=== PATIENT | female | born 2000 | race African-American/Black ===

== ENCOUNTER 2020-11-03 15:55 | Observation (INO) | payer MEDICAID ==
[~2020-11-03] VITALS: Ht 154.9 cm; Wt 89.8 kg
[~2020-11-03 15:55] MED LIST: PNV1TABL50 PO
[2020-11-03] MEDS ORDERED: SODIUM CHLORIDE 0.9% 1,000 ML IV SCH (17:15)
[2020-11-03 17:37] LABS: CLARITY URINE CLEAR (CLEAR); COLOR URINE YELLOW (YELLOW); KETONES URINE 2+ (NEGATIVE); LEUKOCYTE ESTERASE URINE 3+ (NEGATIVE); NITRITE URINE NEGATIVE (NEGATIVE); OCCULT BLOOD URINE NEGATIVE (NEGATIVE); PROTEIN URINE NEGATIVE (NEGATIVE); SPECIFIC GRAVITY URINE 1.014 (1.005-1.030)
[2020-11-03] MEDS ORDERED: BETAMETHASONE ACET/BETAMET 30 MG/5 ML VIAL IM NR (18:30)
[2020-11-03] MEDS ORDERED: CEFAZOLIN 2,000 MG in DEXT 5% WATER 100 ML IV NR (19:00)
== END 2020-11-03 20:50 | disposition home or self-care (01) ==
LOC: 8 EST LDRP 15:55 → EDBD 15:55
PROVIDERS: ADMIT Specialist; ATTEND Specialist
DX: O34.63 Maternal care for abnormality of vagina, third trimester (principal); Z3A.30 30 weeks gestation of pregnancy; Z79.899 Other long term (current) drug therapy
CPT/HCPCS: 59025; 81003; 82731; 87086; 96361; 96365; 96372; G0378; J0690; J0702; J7060; 96360; 99281

== ENCOUNTER 2023-08-10 13:07 | Emergency (ER) | payer MEDICAID ==
[~2023-08-10] VITALS: Ht 160 cm; Wt 91.0 kg
[2023-08-10 13:08] VITALS: BP 118/84; PULSE 75; RESP 18; TEMP 99.7; O2SAT 99
[2023-08-10] MEDS ORDERED: LEVETIRACETAM 500MG PREMIX 100 ML IV ONE (14:00)
[2023-08-10] MEDS ORDERED: SODIUM CHLORIDE 0.9% 1,000 ML IV ONE (14:00)
[2023-08-10 15:14] LABS: BASOPHILS % 0.7 % (0.0-2.0); EOSINOPHILS % 5.3 % (0.0-5.0); HEMATOCRIT. 31.8 % (36.0-48.0); HEMOGLOBIN. 11.2 g/dL (12.0-16.0); LYMPHOCYTES % 31.9 % (20.0-50.0); MEAN CORPUSCULAR HGB CONC 35.2 g/dL (31.0-37.0); MEAN CORPUSCULAR VOLUME 85.3 fL (81.0-99.0); MONOCYTES % 8.6 % (2.0-8.0); NEUTROPHILS % 53.5 % (40.0-76.0); PLATELET 181 x1000/uL (130-400); RED BLOOD CELL COUNT 3.73 mill/uL (4.2-5.4); RED CELL DISTRIBUTION WIDTH 17.6 % (11.6-14.6); WHITE BLOOD COUNT 2.8 x1000/uL (4.5-11.0)
[2023-08-10 15:38] LABS: HCG SCREEN NEGATIVE
[2023-08-10 15:41] LABS: ALANINE AMINOTRANSFERASE 10 IU/L (10-49); ALBUMIN 4.2 g/dL (3.2-4.8); ASPARTATE AMINOTRANSFERASE 22 IU/L (<34); BILIRUBIN TOTAL 0.5 mg/dL (0.1-1.0); CALCIUM 9.2 mg/dL (8.7-10.4); CARBON DIOXIDE 25 mEq/L (21-32); CHLORIDE 109 mEq/L (98-107); CREATININE 0.6 mg/dL (0.6-1.0); GLUCOSE 78 mg/dL (70-105); POTASSIUM 3.7 mEq/L (3.5-5.1); PROTEIN TOTAL 7.6 g/dL (6.0-8.3); SODIUM 141 mEq/L (136-145); UREA NITROGEN BLOOD 6 mg/dL (9-23)
[2023-08-10 15:45] LABS: ETHANOL BLOOD < 10 mg/dL (<10)
== END 2023-08-10 16:07 | disposition left against medical advice (07) ==
LOC: ER 13:07
DX: R56.9 Unspecified convulsions (principal); J45.909 Unspecified asthma, uncomplicated; Z98.890 Other specified postprocedural states
CPT/HCPCS: 80053; 80320; 82962; 84703; 83605; 85025; 36415; 93005; 96361; 96365; 99284; J1953; J7030; Z7610 ×2; G0480

== ENCOUNTER 2024-03-07 20:30 | Emergency (ER) | payer MEDICAID ==
[~2024-03-07] VITALS: Ht 154.9 cm; Wt 87.0 kg
[2024-03-07 20:51] VITALS: TEMP 98.2; O2SAT 100
[2024-03-08 00:38] VITALS: BP 123/59; PULSE 59; RESP 16
== END 2024-03-08 00:41 | disposition home or self-care (01) ==
LOC: ER 20:30
DX: S20.211A Contusion of right front wall of thorax, initial encounter (principal); S09.8XXA Other specified injuries of head, initial encounter; J45.909 Unspecified asthma, uncomplicated; Y08.89XA Assault by other specified means, initial encounter; Y93.89 Activity, other specified; Y92.89 Other specified places as the place of occurrence of the external cause; Y99.8 Other external cause status
CPT/HCPCS: 71101; 99284